=== PATIENT | male | born 1995 | race African-American/Black ===

== ENCOUNTER 2017-02-02 08:18 | Emergency (ER) | payer OTHER ==
[~2017-02-02] VITALS: Ht 170.2 cm; Wt 67.0 kg
[~2017-02-02 08:18] MED LIST: ALBUTEROL17 GM IH
[2017-02-02 11:17] VITALS: BP 118/65
== END 2017-02-02 11:18 | disposition home or self-care (01) ==
LOC: EME 08:18
DX: S06.0X0A Concussion without loss of consciousness, initial encounter (principal); S00.511A Abrasion of lip, initial encounter; V19.9XXA Pedal cyclist (driver) (passenger) injured in unspecified traffic accident, initial encounter; Y93.55 Activity, bike riding; J45.909 Unspecified asthma, uncomplicated; F17.200 Nicotine dependence, unspecified, uncomplicated
CPT/HCPCS: 70450; 70486; 72125; 99281; 99283